=== PATIENT | female | born 1955 | race Caucasian/White ===

== ENCOUNTER 2018-12-17 16:48 | Inpatient (IN) | payer OTHER, SELFPAY ==
[~2018-12-17] VITALS: Ht 154.9 cm; Wt 64.5 kg
[2018-12-17] MEDS ORDERED: methylPREDNISolone INJ 125 MG/2 ML VIAL (J2930) IV ONE (17:00)
[2018-12-17] MEDS: IPRATROPIUM 0.5MG/ALBUTEROL 2.5MG INH SOL UD 3ML (DUONEB)(J7620) NEB PRN ×2 (17:07→18:28)
[2018-12-17 17:11] LABS: HEMATOCRIT 44.6 % (36.0-47.0); HEMOGLOBIN 15.3 g/dl (12.0-15.5); MEAN CORPUSCULAR HEMOGLOBIN 31.2 pg (27.0-33.0); MEAN CORPUSCULAR HGB CONC 34.3 g/dl (32.0-36.5); PLATELET COUNT, AUTOMATED 172 10^3/uL (150-450); WHITE BLOOD COUNT 9.3 10^3/uL (4.0-10.0)
[2018-12-17 17:25] LABS: ABG BASE EXCESS -0.9 (-2.0-2.0); ABG HCO3 21.8 MEQ/L (22.0-26.0); ABG O2 SATURATION 85.8 % (95.0-99.0); ABG PARTIAL PRESSURE CO2 31.4 mmHg (35.0-45.0); ABG STANDARD HCO3 23.4 MEQ/L (22.0-26.0); ABG TOTAL CO2 22.8 MEQ/L (23.0-31.0)
[2018-12-17 17:26] LABS: INR 0.88
--- NOTE | 2018-12-17 17:34 | REP ---
Clinical: Cough and dyspnea. Comparison: None. Findings: Mediastinum and cardiac silhouette are normal. Lung bey demonstrate chronic interstitial changes with superimposed bibasilar atelectasis suggested (left greater than right). No effusion. No pneumothorax. Skeletal structures intact. Impression: Superimposed bibasilar atelectasis (left greater than right). Electronically Signed by Wilmer Mccarthy MD 12/17/2018 05:26 P
[2018-12-17 17:39] LABS: ATYPICAL LYMPH 1 % (0-5); LYMPHOCYTES 17 % (16-52); METAMYELOCYTES 1 % (0-0); MONOCYTES 3 % (0-8); NEUTROPHILS 73 % (35-75); PLATELET ESTIMATE NORMAL (NORMAL)
[2018-12-17 17:40] LABS: ANISOCYTOSIS 1+; INFLUENZA A AMPLIFICATION POSITIVE (NEGATIVE); INFLUENZA B AMPLIFICATION NEGATIVE (NEGATIVE)
[2018-12-17 17:48] LABS: ALBUMIN 2.6 GM/DL (3.2-5.2); BILIRUBIN,DIRECT 0.3 MG/DL (0.0-0.2); BILIRUBIN,TOTAL 0.5 MG/DL (0.2-1.0); CALCIUM LEVEL 8.5 MG/DL (8.8-10.2); CREATININE FOR GFR 1.23 MG/DL (0.55-1.30); GLOMERULAR FILTRATION RATE 47.1 (>45); MB/CK RELATIVE INDEX 0.17 (< OR =4); POTASSIUM SERUM 3.8 MEQ/L (3.5-5.1); THYROID STIMULATING HORMONE 0.504 uIU/ML (0.358-3.740); TOTAL PROTEIN 6.6 GM/DL (6.4-8.2); TROPONIN I 0.02 NG/ML (< 0.10)
[2018-12-17] MEDS ORDERED: OSELTAMIVIR PHOSPHATE 75 MG CAP (TAMIFLU) PO ONE (18:00)
--- NOTE | 2018-12-17 18:17 | ECGEPIP ---
Stationary ECG Study [facility] - ED Test Date: 2018-12-17 Pat Name: GABE OLIVARES Department: Room: - Gender: F Production Maintenance Technician: DOREEN : 1955 Requested By: Karissa Delgado Order Number: [id number] Reading MD: Karissa Delgado Measurements Intervals [place] Rate: 113 P: 70 MS: 144 QRS: 45 QRSD: 79 T: 54 QT: 294 QTc: 404 Interpretive Statements SINUS TACHYCARDIA POSSIBLE RIGHT ATRIAL ENLARGEMENT ABNORMAL RHYTHM ECG NO PRIOR FOR COMPARISON Electronically Signed On 12-17-2018 18:16:53 EDT by Karissa Delgado
[2018-12-17 18:29] LABS: HEMOGLOBIN A1c 6.8 %
[2018-12-17] MEDS ORDERED: IPRATROPIUM 0.5MG/ALBUTEROL 2.5MG INH SOL UD 3ML (DUONEB)(J7620) NEB PRN (18:45)
[2018-12-17] MEDS ORDERED: ACETAMINOPHEN TAB 650MG DOSE (2X325MG) PO PRN (18:45)
[2018-12-17] MEDS: NS 1,000 ML IV SCH (21:10)
[2018-12-17 21:21] VITALS: BP 147/89
[2018-12-17] MEDS ORDERED: ALBUTEROL SULFATE 2.5 MG/0.5 ML INH NEB SOLN NEB PRN (22:30)
[2018-12-17] MEDS: IPRATROPIUM 0.5MG/ALBUTEROL 2.5MG INH SOL UD 3ML (DUONEB)(J7620) NEB SCH (23:01)
[2018-12-18] VITALS (7 sets, daily range): BP systolic 125–165; BP diastolic 62–99; O2SAT 93
[2018-12-18] MEDS: methylPREDNISolone INJ 125 MG/2 ML VIAL (J2930) IV SCH ×3 (01:31→17:37)
[2018-12-18] MEDS: IPRATROPIUM 0.5MG/ALBUTEROL 2.5MG INH SOL UD 3ML (DUONEB)(J7620) NEB SCH ×6 (03:53→20:00)
[2018-12-18] MEDS: NS 1,000 ML IV SCH (04:07)
[2018-12-18] MEDS ORDERED: CEPACOL LOZENGE PO PRN (05:45)
[2018-12-18 06:29] LABS: HEMATOCRIT 40.8 % (36.0-47.0); HEMOGLOBIN 13.9 g/dl (12.0-15.5); MEAN CORPUSCULAR HEMOGLOBIN 30.8 pg (27.0-33.0); MEAN CORPUSCULAR HGB CONC 34.1 g/dl (32.0-36.5); MEAN CORPUSCULAR VOLUME 90.3 fl (80.0-96.0); PLATELET COUNT, AUTOMATED 177 10^3/uL (150-450); RED BLOOD COUNT 4.52 10^6/uL (4.00-5.40); WHITE BLOOD COUNT 9.3 10^3/uL (4.0-10.0)
[2018-12-18 06:55] LABS: ATYPICAL LYMPH 1 % (0-5); LYMPHOCYTES 20 % (16-52); MONOCYTES 7 % (0-8); MYELOCYTES 2 % (0-0); NEUTROPHILS 66 % (35-75); PLATELET ESTIMATE NORMAL (NORMAL)
[2018-12-18 06:56] LABS: ANISOCYTOSIS 1+
[2018-12-18 07:12] LABS: CALCIUM LEVEL 8.3 MG/DL (8.8-10.2); CREATININE FOR GFR 1.05 MG/DL (0.55-1.30); GLOMERULAR FILTRATION RATE 56.5 (>45); POTASSIUM SERUM 3.2 MEQ/L (3.5-5.1)
[2018-12-18] MEDS: HumaLOG INSULIN (NovoLOG) PER UNIT SC SCH ×4 (07:30→21:00)
--- NOTE | 2018-12-18 08:00 | HPE ---
DATE OF ADMISSION: 12/17/2018 63-year-old female with unknown past medical history because she has never seen a primary medical doctor who presents to the emergency room with dry cough and aches and chills for the past four days. She actually claims that the cough has been going on for the past couple of months but has worsened in the past few days and she has increasing shortness of breath. When she came to the ER, she was hypoxic at 83% on room air, was given three nebulizer treatments, 125 mg of IV Solu-Medrol and was placed on 2 liters nasal cannula with marked improvement in her oxygenation, now saturating at 93%. The patient says she does feel better though she was still having a dry cough while I was interviewing her. She has not been exposed to anyone sick that she knows of in the recent past, and again, to mention she has never seen a primary medical doctor so she is on no medications and does not know of any medical problems that she is aware of. She will be admitted for further management. Again, no past medical history, no past surgical history. ALLERGIES: No known drug allergies. FAMILY HISTORY: Noncontributory. SOCIAL HISTORY: Patient is a chronic smoker a pack a day for many years. Denies alcohol or illicit drugs. HOME MEDICATIONS: She takes no medications. REVIEW OF SYSTEMS: Negative in all 10 major systems except what is mentioned in the history of present illness. VITALS: Blood pressure is 141/64, heart rate is 125 and regular, respiratory rate is 20, temperature 99.6, oxygen saturation is 92% on 2 liters nasal cannula. Head is atraumatic, normocephalic. Neck supple, no jugular venous distention (JVD). Lungs have diminished breath sounds bilaterally. S1 and S2 audible, no murmurs appreciated. Abdomen soft. Positive bowel sounds. No pedal edema. Skin is intact. Neurologic exam: Patient awake, alert and oriented times three. LABS: WBC 9.3, hemoglobin 15.3, hematocrit 44.6, platelets 172,000. Sodium 137, potassium 3.8, chloride 101, CO2 25, BUN 31, creatinine 1.23, glucose is 158, lactic acid is 2.2. Hemoglobin A1c 6.8. Creatinine kinase is 1229, TSH is 0.504. The patient is flu A positive. Chest x-ray shows superimposed bibasilar atelectasis, left greater than right. No obvious consolidations. IMPRESSION: 1. Hypoxia. 2. Flu A positive. 3. Rhabdomyolysis. PLAN: Patient is to be admitted to the medical/surgical floor. Will start her on Tamiflu 75 mg by mouth twice a day for seven days. We are going to assume she has chronic obstructive pulmonary disease (COPD) because of her longstanding smoking history. Continue Solu-Medrol at 40 IV every 8 hours and give her DuoNebs every 4 hours as needed. I am not quite sure why she has this mild rhabdomyolysis however, we will start her on IV fluids NS at 125 mL an hour. I will repeat her CK levels in the morning. Will continue following her care on the medical/surgical floor.
[2018-12-18] MEDS ORDERED: POTASSIUM CHLORIDE INJ 20 MEQ in NS 1,000 ML IV SCH (08:03)
[2018-12-18] MEDS ORDERED: GLUCAGON FOR INJ 1 MG VIAL (J1610) SC PRN (08:15)
[2018-12-18] MEDS ORDERED: DEXTROSE 50% 50 ML SYRINGE IV PRN (08:15)
[2018-12-18] MEDS ORDERED: GLUCOSE 4 GM CHEW TABLET PO PRN (08:15)
[2018-12-18] MEDS ORDERED: ISOVUE-370 76% 125ML VIAL (Q9967 PER ML) As Ordered ONE (08:54)
[2018-12-18] MEDS ORDERED: KCL 20MEQ in NS 1000ML 1,000 ML IV SCH (09:00)
[2018-12-18] MEDS ORDERED: POTASSIUM CHLORIDE 10 MEQ SR TABLET PO ONE (09:00)
--- NOTE | 2018-12-18 09:02 | REP ---
Clinical: Right upper quadrant pain. Transaminitis. Technique: Real time gonzalez scale ultrasound examination using curved array transducer. Findings: Liver and visualized pancreas are normal in contour, size, echogenicity without focal hepatic or pancreatic lesion identified. The patient is known to be status post cholecystectomy. No biliary ductal dilatation is appreciated and the common bile duct measures 4.9 mm diameter. The right kidney is normal in reniform shape and appears mildly echogenic suggesting mild age-related renal disease. There is no hydronephrosis and the kidney measures 11.2 x 5.3 x 4.8 cm. No ascites. Impression: 1. Prior cholecystectomy. 2. Possible mild renal disease. Electronically Signed by Wilmer Mccarthy MD 12/18/2018 08:53 A
[2018-12-18 09:10] LABS: C REACTIVE PROTEIN QUANTITATIV 26.3 MG/DL (0.00-0.30); MAGNESIUM LEVEL 2.2 MG/DL (1.8-2.4); MB/CK RELATIVE INDEX 0.48 (< OR =4); TROPONIN I 0.03 NG/ML (< 0.10)
[2018-12-18] MEDS: TIOTROPIUM INHALER/CAPSULE (SPIRIVA) INH SCH (09:21)
[2018-12-18] MEDS: ADVAIR HFA 230/21MCG INHALER INH SCH ×2 (09:21→20:09)
--- NOTE | 2018-12-18 09:27 | REP ---
Clinical: Hypoxia. Technique: Axial contrast enhanced images from the thoracic inlet to the upper abdomen with multiplanar re-formations using pulmonary embolus technique. 100 ml Isovue 370 intravenous contrast material was administered without complication. Findings: No obvious pulmonary embolus is appreciated. Thoracic aorta, heart and pericardium appear relatively normal. Moderate mediastinal and hilar adenopathy noted. The lung bey demonstrate diffuse chronic interstitial changes with scattered primarily bibasilar fibrosis and moderate diffuse bronchiectasis. Small scattered bilateral infiltrates are appreciated along with moderate lower lobe consolidations. No effusion. No pneumothorax. Impression: 1. No evidence for pulmonary embolus. Normal thoracic aorta. 2. Diffuse chronic interstitial changes with moderate bibasilar fibrosis. 3. Small scattered bilateral infiltrates along with moderate lower lobe consolidations suggesting multifocal pneumonia. Correlation and follow up to resolution is recommended. Electronically Signed by Wilmer Mccarthy MD 12/18/2018 09:18 A
[2018-12-18 09:34] LABS: ABG BASE EXCESS -1.9 (-2.0-2.0); ABG O2 SATURATION 94.4 % (95.0-99.0); ABG PARTIAL PRESSURE CO2 39.6 mmHg (35.0-45.0); ABG PARTIAL PRESSURE O2 72.8 mmHg (75.0-100.0); ABG STANDARD HCO3 22.8 MEQ/L (22.0-26.0); ABG TOTAL CO2 24.2 MEQ/L (23.0-31.0); ABG pH (ARTERIAL) 7.381 UNITS (7.350-7.450)
[2018-12-18] MEDS: OSELTAMIVIR PHOSPHATE 30MG CAPSULE PO SCH ×2 (09:35→20:31)
[2018-12-18] MEDS: KCL 20MEQ in NS 1000ML 1,000 ML IV SCH ×2 (10:19→20:31)
[2018-12-18] MEDS: AZITHROMYCIN INJ 500 MG, VIAL MATE ADAPTER 1 EACH in D5W 250 ML IV SCH (11:40)
[2018-12-18] MEDS: CEFTAROLINE FOSAMIL 600 MG in D5W MINI-BAG PLUS 50 ML IV SCH (14:15)
[2018-12-18] MEDS: HEPARIN SOD (PORCINE) 5000 UNITS/ML VIAL SQ SCH ×2 (14:16→22:04)
--- NOTE | 2018-12-18 15:07 | IPN ---
DATE: 12/18/2018 SUBJECTIVE: Patient seen and examined, reported worsening hypoxia, continues to have shortness of breath, admitted yesterday. Continues to have cough productive of yellow phlegm. Denies any chest pain, pressure or discomfort, feeling very weak. Currently on 5-6 liters of oxygen. Patient at baseline is not on oxygen at home. VITAL SIGNS: Temperature 98, pulse 100, respirations 18, blood pressure 146/99, pulse oximetry 91% on 6 liters nasal cannula. LABORATORIES: WBC 9.3, hemoglobin and hematocrit 13/40.8, platelets 177. Chemistries: Sodium 138, potassium 3.2, chloride 105, bicarb 23, BUN 28, creatinine 1.05. PHYSICAL EXAMINATION: GENERAL: Patient mildly dyspneic, obese. HEENT: Normocephalic, atraumatic. NECK: Supple. No jugular venous distention (JVD). PULMONARY: Bilateral rhonchi, mild expiratory wheeze. Decrease in air flow. Mildly tachypnec. CARDIAC: Regular S1 and S2. Mild tachycardia. ABDOMEN: Soft, nontender. Positive bowel sounds. EXTREMITIES: No clubbing, cyanosis, or edema. Point of care bedside ultrasound shows the patient's internal jugular is very much collapsible. Cardiac is hyperdynamic. ASSESSMENT/PLAN: This is a 63-year-old female patient who has not seen a provider for many years, smoker, who presented with cough, shortness of breath, found to be in acute hypoxic respiratory failure. PROBLEMS: 1. Acute hypoxic respiratory failure secondary to influenza A infection with likely acute COPD exacerbation. CT angio negative for pulmonary embolism (PE), likely underlying pneumonia. Will need to rule out Methicillin-resistant Staphylococcus aureus (MRSA) pneumonia. Follow-up blood cultures, sputum culture and MRSA screening. Started on azithromycin and Teflaro. Follow-up C-reactive protein. Follow-up lactic acid. IV fluids have been ordered. No ultrasound evidence of fluid overload based on the point of care ultrasound. Continue IV fluids as ordered. Oxygen supplementation if needed. Will monitor closely. Repeat x-ray tomorrow. CT and ABG appreciated. 2. Rhabdomyolysis. Likely secondary to work of breathing. IV fluids. Follow CKs. 3. Lactic acidosis. Resolved with IV fluids. Likely secondary to work of breathing. 4. Acute COPD exacerbation. The patient does not have a formal diagnosis of COPD, but given significant smoking history and patient's presentation, likely the patient does have COPD and will need outpatient follow-up with body painter. Solu-Medrol, Advair, Spiriva, nebulizer treatment. Antibiotics as mentioned above. Continue treatment with Tamiflu for influenza. 5. Diabetes. A1c of 6.8, likely will become hyperglycemic given the patient is on steroids. Insulin as ordered. Will need metformin as an outpatient likely. 6. Obesity, complicating care. 7. Poor compliance. Patient will need to be set up with primary care provider as an outpatient. 8. Smoking. Smoking cessation counseling provided. 9. Deep vein thrombosis (DVT) prophylaxis. Heparin subcu. DISPOSITION: Pending clinical improvement. Patient has been transferred to PCU for higher level of care given worsening respirations and higher oxygen requirement.
[2018-12-18 16:44] LABS: MB/CK RELATIVE INDEX 0.59 (< OR =4); TROPONIN I 0.03 NG/ML (< 0.10)
[2018-12-19] MEDS: IPRATROPIUM 0.5MG/ALBUTEROL 2.5MG INH SOL UD 3ML (DUONEB)(J7620) NEB SCH ×6 (00:25→19:46)
[2018-12-19] MEDS: CEFTAROLINE FOSAMIL 600 MG in D5W MINI-BAG PLUS 50 ML IV SCH ×2 (00:52→12:08)
[2018-12-19] MEDS: methylPREDNISolone INJ 40 MG/1 ML VIAL (J2920) IV SCH ×3 (02:40→17:37)
[2018-12-19 04:00] VITALS: BP 137/73
[2018-12-19 05:45] LABS: HEMATOCRIT 37.3 % (36.0-47.0); HEMOGLOBIN 12.3 g/dl (12.0-15.5); MEAN CORPUSCULAR HEMOGLOBIN 30.4 pg (27.0-33.0); MEAN CORPUSCULAR VOLUME 92.3 fl (80.0-96.0); PLATELET COUNT, AUTOMATED 211 10^3/uL (150-450); RED BLOOD COUNT 4.04 10^6/uL (4.00-5.40); WHITE BLOOD COUNT 12.2 10^3/uL (4.0-10.0)
[2018-12-19 06:09] LABS: BILIRUBIN,TOTAL 0.4 MG/DL (0.2-1.0); C REACTIVE PROTEIN QUANTITATIV 16.7 MG/DL (0.00-0.30); CALCIUM LEVEL 8.2 MG/DL (8.8-10.2); GLOMERULAR FILTRATION RATE 59.8 (>45); POTASSIUM SERUM 4.2 MEQ/L (3.5-5.1)
[2018-12-19 06:10] LABS: ALBUMIN 1.8 GM/DL (3.2-5.2)
[2018-12-19] MEDS: HEPARIN SOD (PORCINE) 5000 UNITS/ML VIAL SQ SCH ×3 (06:41→20:18)
--- NOTE | 2018-12-19 06:51 | ECHO ---
DATE OF PROCEDURE: 12/18/2018 DATE OF : 1955 AGE: 63 REFERRING PROVIDER: Dr. Goetz. PATIENT LOCATION: Room 3219. REASON FOR ECHOCARDIOGRAM: Shortness of breath. 2D MEASUREMENTS: IVS: 0.8 cm LV: 3.8 cm LVPW: 0.9 cm LA: 2.9 cm Aorta: 3.2 cm IVC: 1.4 cm DOPPLER MEASUREMENTS: Peak velocity across the aortic valve: 1.8 m/s Peak velocity across the LVOT: 1.6 m/s Peak gradient across the aortic valve: 13 mmHg Mean gradient across the aortic valve: 7 mmHg Mitral E: 0.84, Mitral A 1.1 with a ratio of 0.8. 2D COMMENTS: 1. Normal left ventricular size, wall thickness and normal global left ventricular systolic function. The left ventricle appeared to be mildly hyperkinetic. The estimated global left ventricular systolic ejection fraction is 65% to 70%. 2. Normal left atrium. Normal right atrium and ventricle. 3. The atrial septum appeared to be normal without evidence of defect or shunt. 4. Normal aortic root. 5. Trace pericardial effusion noted posteriorly at the base of the left ventricle, no evidence of cardiac tamponade. 6. Mildly calcified aortic valve, leaflet excursion appeared to be normal. Mildly calcified mitral annulus with normal anterior mitral valve leaflet motion. Normal tricuspid valve and pulmonic valve. 7. The inferior vena cava was normal in size, central venous pressure is most likely normal. DOPPLER: It detects trace mitral regurgitation. Abnormal relaxation pattern was noted across the mitral valve leaflets consistent with features of grade I left ventricular diastolic dysfunction. IMPRESSION: 1. Normal global left ventricular systolic function. There are some features of left ventricular diastolic dysfunction manifested by abnormal relaxation. 2. Aortic valve sclerosis with trivial aortic stenosis. No evidence of aortic regurgitation detected. 3. Mitral annulus calcification with trace mitral regurgitation. 4. Trace pericardial effusion noted during the test, no evidence of cardiac tamponade. This was noted mainly at the base of the left ventricle. 5. Patient during echocardiogram was mildly tachycardic at times. MTDD
[2018-12-19] MEDS: TIOTROPIUM INHALER/CAPSULE (SPIRIVA) INH SCH (07:18)
[2018-12-19] MEDS: ADVAIR HFA 230/21MCG INHALER INH SCH ×2 (07:18→19:45)
[2018-12-19 08:00] VITALS: BP 119/65
[2018-12-19] MEDS ORDERED: LR 1,000 ML IV SCH (08:00)
[2018-12-19] MEDS: HumaLOG INSULIN (NovoLOG) PER UNIT SC SCH ×4 (08:07→20:19)
[2018-12-19] MEDS: OSELTAMIVIR PHOSPHATE 30MG CAPSULE PO SCH ×2 (08:07→20:18)
[2018-12-19] MEDS: AZITHROMYCIN INJ 500 MG, VIAL MATE ADAPTER 1 EACH in D5W 250 ML IV SCH (10:07)
[2018-12-19 12:00] VITALS: BP 123/65
[2018-12-19 16:00] VITALS: BP 128/66
--- NOTE | 2018-12-19 16:14 | IPNPDOC ---
Date Seen The patient was seen on 12/19/18. Progress Note SUBJECTIVE: Patient is a 83-year-old female who has not seen a provider for many years history of tobacco abuse who was admitted for acute hypoxic respiratory failure secondary to influenza a infection and multifocal pneumonia. Patient is seen and examined this morning continues to have some shortness of breath but no worsening hypoxia. She denies any chest pain. She is tolerating meals has had bowel movements and is trying to keep herself hydrated. She has minimal urine output in the last 24 hours though. Was started on IV steroids 40 mg every 8 hours yesterday. MRSA screen returned negative OBJECTIVE PHYSICAL EXAMINATION: VITAL SIGNS: Please see below. GENERAL: Soft-spoken 63-year-old female who does not appear in acute distress laying down comfortably on the bed not fully participating in exam today HEENT: Atraumatic normocephalic pupils round and reactive no JVD no lymphadenopa thy noted CARDIOVASCULAR: Normal S1-S2 sounds slightly tachycardic, no audible murmurs RESPIRATORY: Diffuse rhonchi with mild expiratory wheeze decreased inspiratory expansion, reduced breath sounds in the left lower lobe and positive for egophony left lower lobe. ABDOMINAL: Obese abdomen soft nontender with positive bowel sounds EXTREMITIES: No lower extremity edema no calf tenderness LABORATORY DATA, IMAGING STUDIES, MICROBIOLOGY: Please see below. Echocardiogram: 12/18/2018- Dr. Cotter 1. Normal global left ventricular systolic function. There are some features of left ventricular diastolic dysfunction manifested by abnormal relaxation. 2. Aortic valve sclerosis with trivial aortic stenosis. No evidence of aortic regurgitation detected. 3. Mitral annulus calcification with trace mitral regurgitation. 4. Trace pericardial effusion noted during the test, no evidence of cardiac t amponade. This was noted mainly at the base of the left ventricle. 5. Patient during echocardiogram was mildly tachycardic at times. DVT prophylaxis ordered?: Yes heparin subcutaneous twice a day ASSESSMENT AND PLAN: This is a 63-year-old female patient who has not seen a provider for many years, smoker, who presented with cough, shortness of breath, found to be in acute hypoxic respiratory failure. PROBLEMS: Acute hypoxic respiratory failure secondary to influenza A infection and likely multifocal pneumonia - CT angio negative for PE, possible multifocal pneumonia -Blood cultures 2 negative -Gastrointestinal panel and MRSA screen negative -Procalcitonin elevated: 41.04 -Trend CRP, consider repeat pro calcitonin in 24-48 hours to see a response to antibiotic therapy -De-escalated Teflaro to Rocephin and continue with azithromycin for 5-7 days of antibiotics therapy -Sputum culture pending -C/w with Tamiflu for 5 days (12/23/18) -Continue with steroid taper -C/W DuoNeb's, Proventil nebulizer and oxygen Rhabdomyolysis Likely secondary to work of breathing -Continue with lactated Ringer's 100 mL 1 L -Trend CKs Lactic acidosis. -Resolved with IV fluids. -Likely secondary to work of breathing. Acute COPD exacerbation -does not have a formal diagnosis of COPD -significant smoking history and patient's presentation, likely the patient does have COPD and will need outpatient follow-up with education and training manager. -c/w Solu-Medrol taer, Advair, Spiriva, nebulizer treatment. Diabetes. -A1c of 6.8, -Hyperglycemia likely secondary to steroids -c/w Insulin -Upon discharge consider metformin Obesity -complicating care. Poor compliance. -establish with primary care provider as an outpatient. Smoking -cessation counseling provided. DVT prophylaxis -Heparin subcu. VS, I&O, 24H, Fishbone Vital Signs/I&O Vital Signs Date Time Temp Pulse Resp B/P (MAP) Pulse Ox O2 Delivery O2 Flow Rate FiO2 12/19/18 12:00 97.6 100 16 123/65 (84) 95 6.0 12/19/18 11:23 Nasal Cannula I&O- Last 24 Hours up to 6 AM 12/19/18 06:00 Intake Total 590 ml Output Total 200 ml Balance 390 ml Laboratory Data 24H LABS Laboratory Tests 2 12/18/18 15:49: Total Creatine Kinase 1135H, Creatine Kinase MB 7.0H, Creatine Kinase MB Relative Index 0.59, Troponin I 0.03 12/18/18 17:27: Bedside Glucose (Misc Panel) 238H 12/18/18 20:50: Bedside Glucose (Misc Panel) 235H 12/19/18 05:16: Nucleated Red Blood Cells % (auto) 0.3H, Anion Gap 7L, Glomerular Filtration Rate 59.8, Blood Urea Nitrogen 24H, Creatinine 1.00, Sodium Level 141, Potassium Level 4.2#, Chloride Level 112H, Carbon Dioxide Level 22, Calcium Level 8.2L, Aspartate Amino Transf (AST/SGOT) 77H, Alanine Aminotransferase (ALT/SGPT) 50, Alkaline Phosphatase 117, Total Bilirubin 0.4, Total Protein 6.0L, Albumin 1.8#L, Magnesium Level 2.0, C-Reactive Protein, Quantitative 16.70H, Albumin/Globulin Ratio 0.43L 12/19/18 11:42: Bedside Glucose (Misc Panel) 261H CBC/BMP Laboratory Tests 12/19/18 05:16 Red Blood Count 4.04, Mean Corpuscular Volume 92.3, Mean Corpuscular Hemoglobin 30.4, Mean Corpuscular Hemoglobin Concent 33.0, Red Cell Distribution Width 16.1 H, Calcium Level 8.2 L, Aspartate Amino Transf (AST/SGOT) 77 H, Alanine Aminotransferase (ALT/SGPT) 50, Alkaline Phosphatase 117, Total Bilirubin 0.4, Total Protein 6.0 L, Albumin 1.8 #L Microbiology Microbiology 12/17/18 Blood Culture - Preliminary, Resulted 12/17/18 Blood Culture - Preliminary, Resulted 12/18/18 Gastrointestinal Tract Panel (PCR) - Final, Complete 12/18/18 MRSA Screen - Final, Complete GME ATTESTATION GME ATTESTATION My faculty preceptor for this patient encounter was physically present during th e encounter and was fully available. All aspects of the patient interview, examination, medical decision making process, and medical care plan development were reviewed and approved by the faculty preceptor. The faculty preceptor is aware and concurs with the plan as stated in the body of this note and will attest to such by his/her cosignature. ATTENDING NOTE I have both independently examined this patient as well as reviewed the note. I have discussed in detail with the resident the findings and plan of treatment as documented in the residents note. TRENTON Harding MD, DO Dec 19, 2018 15:51 IVORY PEDROZA MD Dec 20, 2018 17:52
[2018-12-19 20:00] VITALS: BP 127/60
[2018-12-19 23:59] VITALS: BP 131/59
[2018-12-20] MEDS: cefTRIAXone SOD 1 GM in D5W MINI-BAG PLUS 50 ML IV SCH (00:16)
[2018-12-20 04:00] VITALS: BP 117/60
[2018-12-20] MEDS: IPRATROPIUM 0.5MG/ALBUTEROL 2.5MG INH SOL UD 3ML (DUONEB)(J7620) NEB SCH ×7 (04:00→23:11)
[2018-12-20] MEDS: HEPARIN SOD (PORCINE) 5000 UNITS/ML VIAL SQ SCH ×3 (05:02→21:03)
[2018-12-20 05:56] LABS: HEMATOCRIT 37.4 % (36.0-47.0); HEMOGLOBIN 12.2 g/dl (12.0-15.5); MEAN CORPUSCULAR HEMOGLOBIN 30.7 pg (27.0-33.0); MEAN CORPUSCULAR HGB CONC 32.6 g/dl (32.0-36.5); PLATELET COUNT, AUTOMATED 231 10^3/uL (150-450); RED BLOOD COUNT 3.98 10^6/uL (4.00-5.40); WHITE BLOOD COUNT 13.6 10^3/uL (4.0-10.0)
[2018-12-20 06:27] LABS: ALBUMIN 1.9 GM/DL (3.2-5.2); BILIRUBIN,TOTAL 0.3 MG/DL (0.2-1.0); C REACTIVE PROTEIN QUANTITATIV 7.5 MG/DL (0.00-0.30); CALCIUM LEVEL 8.9 MG/DL (8.8-10.2); CREATININE FOR GFR 1.08 MG/DL (0.55-1.30); GLOMERULAR FILTRATION RATE 54.7 (>45); MAGNESIUM LEVEL 2.2 MG/DL (1.8-2.4); POTASSIUM SERUM 4.5 MEQ/L (3.5-5.1); TOTAL PROTEIN 6.2 GM/DL (6.4-8.2)
[2018-12-20] MEDS: OSELTAMIVIR PHOSPHATE 30MG CAPSULE PO SCH ×2 (07:54→21:02)
[2018-12-20] MEDS: HumaLOG INSULIN (NovoLOG) PER UNIT SC SCH ×4 (07:56→21:00)
[2018-12-20 08:00] VITALS: BP 127/60
[2018-12-20] MEDS: ADVAIR HFA 230/21MCG INHALER INH SCH ×2 (08:35→19:38)
[2018-12-20] MEDS: TIOTROPIUM INHALER/CAPSULE (SPIRIVA) INH SCH (08:35)
[2018-12-20] MEDS ORDERED: predniSONE 20 MG TAB PO SCH (09:00)
[2018-12-20] MEDS: AZITHROMYCIN INJ 500 MG, VIAL MATE ADAPTER 1 EACH in D5W 250 ML IV SCH (11:12)
[2018-12-20 12:00] VITALS: BP 127/72
[2018-12-20] MEDS: methylPREDNISolone INJ 125 MG/2 ML VIAL (J2930) IV SCH (15:26)
[2018-12-20 16:00] VITALS: BP 135/72
--- NOTE | 2018-12-20 16:59 | IPNPDOC ---
Date Seen The patient was seen on 12/20/18. Progress Note SUBJECTIVE: Ms. Calero is a 63 yo female who was admitted for acute hypoxic respiratory failure secondary to influenza and multifocal pneumonia. Patient was seen this morning resting in bed. She says that she has not had any improvement in her symptoms. She reports SOB, non productive cough, and fatigue. Overnight nursing reported asymptomatic bradycardia with her HR into the 40s which corrected when woken up. No other overnight events reported OBJECTIVE PHYSICAL EXAMINATION: VITAL SIGNS: Please see below. GENERAL: alert, cooperative, A&OX3 HEENT: PERRLA, EOMI, supply, no JVD CARDIOVASCULAR: regular rate, normal s1 and s2. no murmurs, rubs, or gallops RESPIRATORY: Diffuse diminished breath sounds bilaterally. Mild expiratory wheezes at the lung bases. Dullness to percussion in the left lower lung base (improving) ABDOMINAL: obese, non distended, non tender to palpation EXTREMITIES: no peripheral edema, no rashes LABORATORY DATA, IMAGING STUDIES, MICROBIOLOGY: Please see below. DVT prophylaxis ordered?: subcutaneous heparin BID ASSESSMENT AND PLAN: Ms. Calero is a 63 yo female who was admitted for acute hypoxic respiratory failure secondary to influenza and multifocal pneumonia. The following problems will be addressed during her hospitalization. PROBLEMS: Acute hypoxic respiratory failure secondary to influenza A infection and likely multifocal pneumonia - Patient complains of SOB, non productive cough, and fatigue. She has no home O2 requirement -CT possible multifocal pneumonia, Blood cultures 2 negative, Gastrointestinal panel and MRSA screen negative -CRP is trending down, continue to monitor -De-escalated Teflaro to Rocephin and continue with azithromycin for 5-7 days of antibiotics therapy -c/w IV methylprednisolone 40 mg q8h, can considering taper after clinical improvement -C/w with Tamiflu for 5 days (12/23/18) -C/W DuoNeb's, Proventil nebulizer and begin to wean oxygen to maintain O2 >90% -Chest PT ordered Rhabdomyolysis Likely secondary to work of breathing -CK continues to trend down, will monitor Lactic acidosis. -Resolved with IV fluids. -Likely secondary to work of breathing. Acute COPD exacerbation -does not have a formal diagnosis of COPD -significant smoking history and patient's presentation, likely the patient does have COPD and will need outpatient follow-up with base filler. -c/w Solu-Medrol taper, Advair, Spiriva, nebulizer treatment. Diabetes. -A1c of 6.8 -Hyperglycemia likely secondary to steroids -c/w ISS -Upon discharge consider metformin Obesity -complicating care. Poor compliance. -establish with primary care provider as an outpatient. Smoking -cessation counseling provided PT/OT -consulted, appreciate their recommendation DVT prophylaxis -Heparin subcu. DISPOSITION: pending clinical improvement VS, I&O, 24H, Fishbone Vital Signs/I&O Vital Signs Date Time Temp Pulse Resp B/P (MAP) Pulse Ox O2 Delivery O2 Flow Rate FiO2 12/20/18 12:00 4.0 12/20/18 12:00 97.3 80 17 127/72 (90) 94 12/19/18 11:23 Nasal Cannula I&O- Last 24 Hours up to 6 AM 12/20/18 06:00 Intake Total 2330 ml Output Total 500 ml Balance 1830 ml Laboratory Data 24H LABS Laboratory Tests 2 12/19/18 17:27: Bedside Glucose (Misc Panel) 295H 12/19/18 20:15: Bedside Glucose (Misc Panel) 270H 12/20/18 05:01: Nucleated Red Blood Cells % (auto) 0.3H, Anion Gap 6L, Glomerular Filtration Rate 54.7, Blood Urea Nitrogen 29H, Creatinine 1.08, Sodium Level 144, Potassium Level 4.5, Chloride Level 112H, Carbon Dioxide Level 26, Calcium Level 8.9, Aspartate Amino Transf (AST/SGOT) 68H, Alanine Aminotransferase (ALT/SGPT) 54, Total Creatine Kinase 426H, Alkaline Phosphatase 118H, Total Bilirubin 0.3, Total Protein 6.2L, Albumin 1.9L, Magnesium Level 2.2, C-Reactive Protein, Quantitative 7.50H, Albumin/Globulin Ratio 0.44L 12/20/18 11:51: Bedside Glucose (Misc Panel) 214H CBC/BMP Laboratory Tests 12/20/18 05:01 Red Blood Count 3.98 L, Mean Corpuscular Volume 94.0, Mean Corpuscular Hemoglobin 30.7, Mean Corpuscular Hemoglobin Concent 32.6, Red Cell Distribution Width 16.4 H, Calcium Level 8.9, Aspartate Amino Transf (AST/SGOT) 68 H, Alanine Aminotransferase (ALT/SGPT) 54, Total Creatine Kinase 426 H, Alkaline Phosphatase 118 H, Total Bilirubin 0.3, Total Protein 6.2 L, Albumin 1.9 L Microbiology Microbiology 12/20/18 Blood Culture, Received Pending 12/17/18 Blood Culture - Final, Complete Staphylococcus Hominis Ssp Jaya 12/17/18 Blood Culture - Final, Complete Staphylococcus Hominis Ssp Jaya 12/18/18 Gastrointestinal Tract Panel (PCR) - Final, Complete 12/18/18 MRSA Screen - Final, Complete GME ATTESTATION GME ATTESTATION My faculty preceptor for this patient encounter was physically present during the encounter and was fully available. All aspects of the patient interview, examination, medical decision making process, and medical care plan development were reviewed and approved by the faculty preceptor. The faculty preceptor is aware and concurs with the plan as stated in the body of this note and will attest to such by his/her cosignature. MELANIE PARIKH OMS-III Dec 20, 2018 16:59
[2018-12-20 20:00] VITALS: BP 136/75
[2018-12-21] MEDS: cefTRIAXone SOD 1 GM in D5W MINI-BAG PLUS 50 ML IV SCH ×2 (00:31→23:59)
[2018-12-21] MEDS: methylPREDNISolone INJ 125 MG/2 ML VIAL (J2930) IV SCH ×4 (00:31→23:59)
[2018-12-21 04:00] VITALS: BP 142/73
[2018-12-21] MEDS: IPRATROPIUM 0.5MG/ALBUTEROL 2.5MG INH SOL UD 3ML (DUONEB)(J7620) NEB SCH ×6 (04:00→23:24)
[2018-12-21 05:18] LABS: HEMATOCRIT 36.2 % (36.0-47.0); HEMOGLOBIN 12.1 g/dl (12.0-15.5); MEAN CORPUSCULAR HEMOGLOBIN 30.7 pg (27.0-33.0); MEAN CORPUSCULAR HGB CONC 33.4 g/dl (32.0-36.5); MEAN CORPUSCULAR VOLUME 91.9 fl (80.0-96.0); PLATELET COUNT, AUTOMATED 250 10^3/uL (150-450); RED BLOOD COUNT 3.94 10^6/uL (4.00-5.40); WHITE BLOOD COUNT 9.6 10^3/uL (4.0-10.0)
[2018-12-21 05:37] LABS: ALBUMIN 2.1 GM/DL (3.2-5.2); BILIRUBIN,TOTAL 0.4 MG/DL (0.2-1.0); C REACTIVE PROTEIN QUANTITATIV 3.42 MG/DL (0.00-0.30); CALCIUM LEVEL 8.6 MG/DL (8.8-10.2); CREATININE FOR GFR 1.09 MG/DL (0.55-1.30); GLOMERULAR FILTRATION RATE 54.1 (>45); POTASSIUM SERUM 4.4 MEQ/L (3.5-5.1); TOTAL PROTEIN 6.2 GM/DL (6.4-8.2)
[2018-12-21] MEDS: HEPARIN SOD (PORCINE) 5000 UNITS/ML VIAL SQ SCH ×3 (06:19→22:06)
[2018-12-21] MEDS: TIOTROPIUM INHALER/CAPSULE (SPIRIVA) INH SCH (07:27)
[2018-12-21] MEDS: ADVAIR HFA 230/21MCG INHALER INH SCH ×2 (07:27→19:38)
[2018-12-21 07:45] VITALS: BP 170/81
[2018-12-21] MEDS: OSELTAMIVIR PHOSPHATE 30MG CAPSULE PO SCH ×2 (09:31→22:06)
[2018-12-21] MEDS: HumaLOG INSULIN (NovoLOG) PER UNIT SC SCH ×4 (09:31→21:00)
[2018-12-21] MEDS: AZITHROMYCIN INJ 500 MG, VIAL MATE ADAPTER 1 EACH in D5W 250 ML IV SCH (11:37)
[2018-12-21 12:00] VITALS: BP 167/81
[2018-12-21 12:09] VITALS: O2SAT 90
[2018-12-21] MEDS ORDERED: SLF 3 ML SYR IV PRN (12:30)
[2018-12-21] MEDS: SLF 3 ML SYR IV SCH ×2 (14:16→22:00)
[2018-12-21 16:00] VITALS: BP 148/74
--- NOTE | 2018-12-21 16:57 | IPNPDOC ---
Date Seen The patient was seen on 12/21/18. Progress Note SUBJECTIVE: Ms. Calero is a 63 yo female who was admitted for acute hypoxic respiratory failure secondary to influenza and multifocal pneumonia. She was seen this morning while sitting up in bed. She says that she is feeling better today. She still has some SOB but her cough is improving, she used chest PT yesterday which she complained was loud. Nursing reported no overnight events. OBJECTIVE PHYSICAL EXAMINATION: VITAL SIGNS: Please see below. GENERAL: Patient appears more comfortable and is on RA. She is alert, cooperative, A&OX3. HEENT: PERRLA, EOMI, supple CARDIOVASCULAR: Regular rate, normal S1 and S2. No murmurs, rubs, gallops. RESPIRATORY: Diminished breath sounds throughout. Few scattered rhonchi. Mild wheezing at lung bases. No egophony. (improving) ABDOMINAL: obese, soft LABORATORY DATA, IMAGING STUDIES, MICROBIOLOGY: Please see below. ECHOCARDIOGRAM: IMPRESSION: 1. Normal global left ventricular systolic function. There are some features of left ventricular diastolic dysfunction manifested by abnormal relaxation. 2. Aortic valve sclerosis with trivial aortic stenosis. No evidence of aortic regurgitation detected. 3. Mitral annulus calcification with trace mitral regurgitation. 4. Trace pericardial effusion noted during the test, no evidence of cardiac tamponade. This was noted mainly at the base of the left ventricle. 5. Patient during echocardiogram was mildly tachycardic at times. DVT prophylaxis ordered?: subcutaneous heparin BID ASSESSMENT AND PLAN: Ms. Calero is a 63 yo female who was admitted for acute hypoxic respiratory failure secondary to influenza and multifocal pneumonia. The following problems will be addressed during her hospitalization. PROBLEMS: Acute hypoxic respiratory failure secondary to influenza A infection and likely multifocal pneumonia(improving) -Patient appears to be clinically improving. Still reports some SOB and improvement in cough. Currently has O2 sats >90% on RA -CT possible multifocal pneumonia -CRP is continuing to trend down, repeat procalcitonin -c/w azithromycin (day 4) and ceftriaxone (day 2). -c/w IV methylprednisolone 40 mg q8h, can considering taper in 24-48 hours pending further clinical improvement -C/w with Tamiflu for 5 days (12/23/18) -C/w DuoNeb's, Proventil nebulizer and chest PT Staph Bacteremia -Blood cultures 12/18/18 x2 positive for staphylococcus hominis -repeat culture 12/20/18 preliminary has no growth. -She is afebrile, normotensive, normal HR. -Patient is currently on ceftriaxone (day 2) -Echo 12/18/18 showed no valve vegetations -no obivious skin breakdown as source, will need to do through exam tomorrow -Will consult ID, appreciate their recommendations Newly Diagnosed Diabetic -Blood sugar readings have trended upwards since admission likely due to IV steroids. -A1c is 6.8 -worsening Hyperglycemia likely secondary to steroids -c/w ISS and supplment with 10 units levemir at night -Upon discharge consider metformin Acute COPD exacerbation(resolved) -does not have a formal diagnosis of COPD -significant smoking history and patient's presentation, likely the patient does have COPD and will need outpatient follow-up with emergency medicine physician assistant. -c/w Solu-Medrol taper, Advair, Spiriva, nebulizer treatment. Rhabdomyolysis Likely secondary to work of breathing (improving) -CK down trending -can consider repeat levels in 24-48 hours Lactic acidosis (resolved) -s/p IV fluids. Obesity -complicating care. Poor compliance. -establish with primary care provider as an outpatient. Smoking -cessation counseling provided PT/OT -consulted, appreciate their recommendation DVT prophylaxis -Heparin subcu. DISPOSITION: ID consult. Glycemic control. Pending clinical improvement VS, I&O, 24H, Fishbone Vital Signs/I&O Vital Signs Date Time Temp Pulse Resp B/P (MAP) Pulse Ox O2 Delivery O2 Flow Rate FiO2 12/21/18 12:09 90 Room Air 12/21/18 12:00 98.6 79 18 167/81 (109) 12/21/18 06:19 3.0 I&O- Last 24 Hours up to 6 AM 12/21/18 06:00 Intake Total 615 ml Output Total 0 ml Balance 615 ml Laboratory Data 24H LABS Laboratory Tests 2 12/20/18 17:19: Bedside Glucose (Misc Panel) 238H 12/20/18 21:01: Bedside Glucose (Misc Panel) 225H 12/21/18 04:50: Nucleated Red Blood Cells % (auto) 0.0, Anion Gap 6L, Glomerular Filtration Rate 54.1, Blood Urea Nitrogen 30H, Creatinine 1.09, Sodium Level 141, Potassium Level 4.4, Chloride Level 110H, Carbon Dioxide Level 25, Calcium Level 8.6L, Aspartate Amino Transf (AST/SGOT) 58H, Alanine Aminotransferase (ALT/SGPT) 56, Alkaline Phosphatase 118H, Total Bilirubin 0.4, Total Protein 6.2L, Albumin 2.1L, Magnesium Level 2.0, C-Reactive Protein, Quantitative 3.42H, Albumin/Globulin Ratio 0.51L 12/21/18 09:20: Bedside Glucose (Misc Panel) 351H 12/21/18 11:42: Bedside Glucose (Misc Panel) 289H CBC/BMP Laboratory Tests 12/21/18 04:50 Red Blood Count 3.94 L, Mean Corpuscular Volume 91.9, Mean Corpuscular Hemoglobin 30.7, Mean Corpuscular Hemoglobin Concent 33.4, Red Cell Distribution Width 16.1 H, Calcium Level 8.6 L, Aspartate Amino Transf (AST/SGOT) 58 H, Alanine Aminotransferase (ALT/SGPT) 56, Alkaline Phosphatase 118 H, Total Bilirubin 0.4, Total Protein 6.2 L, Albumin 2.1 L Microbiology Microbiology 12/20/18 Blood Culture - Preliminary, Resulted No growth after 24 hours . All specim... 12/17/18 Blood Culture - Final, Complete Staphylococcus Hominis Ssp Jaya 12/17/18 Blood Culture - Final, Complete Staphylococcus Hominis Ssp Jaya 12/18/18 Gastrointestinal Tract Panel (PCR) - Final, Complete 12/18/18 MRSA Screen - Final, Complete GME ATTESTATION GME ATTESTATION My faculty preceptor for this patient encounter was physically present during th e encounter and was fully available. All aspects of the patient interview, examination, medical decision making process, and medical care plan development were reviewed and approved by the faculty preceptor. The faculty preceptor is aware and concurs with the plan as stated in the body of this note and will attest to such by his/her cosignature. MELANIE PARIKH OMS-III Dec 21, 2018 15:04
[2018-12-21 20:00] VITALS: BP 137/67
[2018-12-21] MEDS: LEVEMIR (INSULIN DETEMIR) 1 UNITS/0.01ML SC SCH (22:09)
[2018-12-22] VITALS: BP 130/65
[2018-12-22 04:00] VITALS: BP 160/84
[2018-12-22] MEDS: IPRATROPIUM 0.5MG/ALBUTEROL 2.5MG INH SOL UD 3ML (DUONEB)(J7620) NEB SCH ×6 (04:20→23:56)
[2018-12-22 05:45] LABS: HEMATOCRIT 35.9 % (36.0-47.0); HEMOGLOBIN 12.1 g/dl (12.0-15.5); MEAN CORPUSCULAR HEMOGLOBIN 30.8 pg (27.0-33.0); MEAN CORPUSCULAR HGB CONC 33.7 g/dl (32.0-36.5); MEAN CORPUSCULAR VOLUME 91.3 fl (80.0-96.0); PLATELET COUNT, AUTOMATED 236 10^3/uL (150-450); RED BLOOD COUNT 3.93 10^6/uL (4.00-5.40); WHITE BLOOD COUNT 8.6 10^3/uL (4.0-10.0)
[2018-12-22] MEDS: SLF 3 ML SYR IV SCH ×3 (06:00→20:52)
[2018-12-22] MEDS: HEPARIN SOD (PORCINE) 5000 UNITS/ML VIAL SQ SCH ×3 (06:00→20:52)
[2018-12-22 06:03] LABS: ALBUMIN 2.2 GM/DL (3.2-5.2); ALT/SGPT 60 U/L (12-78); BILIRUBIN,TOTAL 0.6 MG/DL (0.2-1.0); BLOOD UREA NITROGEN 26 MG/DL (7-18); C REACTIVE PROTEIN QUANTITATIV 1.86 MG/DL (0.00-0.30); CALCIUM LEVEL 8.3 MG/DL (8.8-10.2); CARBON DIOXIDE LEVEL 28 MEQ/L (21-32); CHLORIDE LEVEL 108 MEQ/L (98-107); CREATININE FOR GFR 0.91 MG/DL (0.55-1.30); GLOMERULAR FILTRATION RATE > 60.0 (>45); GLUCOSE, FASTING 240 MG/DL (70-100); MAGNESIUM LEVEL 1.9 MG/DL (1.8-2.4); POTASSIUM SERUM 3.7 MEQ/L (3.5-5.1); SODIUM LEVEL 143 MEQ/L (136-145); TOTAL PROTEIN 6.3 GM/DL (6.4-8.2)
[2018-12-22] MEDS: TIOTROPIUM INHALER/CAPSULE (SPIRIVA) INH SCH (07:17)
[2018-12-22] MEDS: ADVAIR HFA 230/21MCG INHALER INH SCH ×2 (07:17→19:46)
[2018-12-22 08:00] VITALS: BP 143/78
[2018-12-22] MEDS: HumaLOG INSULIN (NovoLOG) PER UNIT SC SCH ×4 (09:14→20:52)
[2018-12-22] MEDS: OSELTAMIVIR PHOSPHATE 30MG CAPSULE PO SCH ×2 (09:14→20:51)
[2018-12-22] MEDS: methylPREDNISolone INJ 125 MG/2 ML VIAL (J2930) IV SCH ×2 (09:14→16:06)
[2018-12-22] MEDS: AZITHROMYCIN INJ 500 MG, VIAL MATE ADAPTER 1 EACH in D5W 250 ML IV SCH (11:37)
[2018-12-22 12:00] VITALS: BP 127/69
[2018-12-22 16:00] VITALS: BP 123/78
--- NOTE | 2018-12-22 16:33 | IPNPDOC ---
Date Seen The patient was seen on 12/22/18. Progress Note SUBJECTIVE: Patient is a 63 yo female who was admitted for acute hypoxic respiratory failure secondary to influenza and multifocal pneumonia. She was seen this morning sitting on the edge of the bed on room air. She said that she is feeling better today. SOB and cough have improved. Nursing reported no overnight events. PT continues to see improvement with ambulation, Stating appropriately on RA. OBJECTIVE PHYSICAL EXAMINATION: VITAL SIGNS: Please see below. GENERAL: Alert, cooperative, A&OX3. She is on RA, talking in full sentences, no hoarseness in voice HEENT: EOMI, PERRLA, supple CARDIOVASCULAR: RRR, normal S1 and S2. no murmurs, rubs, or gallops RESPIRATORY: Diffuse diminished breath sounds. Minimal wheezing at lung base. No dullness to percussion, no egophony appreciated. (Improved) ABDOMINAL: obese, soft, non tender, positive breath sounds EXTREMITIES: no skin breakdown, no rashes LABORATORY DATA, IMAGING STUDIES, MICROBIOLOGY: Please see below. DVT prophylaxis ordered?: SC heparin ASSESSMENT AND PLAN: Patient is a 63 yo female who was admitted for acute hypoxic respiratory failure secondary to influenza and multifocal pneumonia. The following problems will be managed during hospitalization: PROBLEMS: Acute hypoxic respiratory failure secondary to influenza A infection and likely multifocal pneumonia (improving) -Patient appears to be clinically improving. SOB and cough improving. Currently has O2 sats >92% on RA -CT possible multifocal pneumonia -CRP and procalcitonin down trending -c/w azithromycin (day 5) and ceftriaxone (day 3). -Transition IV methylprednisolone 40 mg q8h to prednisone 40 mg PO daily -C/w with Tamiflu for 5 days (12/23/18) -C/w DuoNeb's, Proventil nebulizer and chest PT Staph Bacteremia -Blood cultures 12/18/18 x2 positive for staphylococcus hominis -repeat culture 12/20/18 preliminary has no growth. -She is afebrile, normotensive, normal HR. -Patient is currently on ceftriaxone (day 2) -Echo 12/18/18 showed no valve vegetations -No evidence of skin breakdown -Consulted ID, appreciate their recommendations Newly Diagnosed Diabetic -Blood sugar normalizing -A1c is 6.8 -c/w ISS and supplement with 10 units Levemir at night -Upon discharge consider metformin Acute COPD exacerbation (resolved) -Does not have a formal diagnosis of COPD -Significant smoking history and patient's presentation, likely the patient does have COPD and will need outpatient follow-up with defensive secondary coach. -c/w Solu-Medrol taper, Advair, Spiriva, nebulizer treatment. Rhabdomyolysis Likely secondary to work of breathing (Resolved) -ambulating with no problem and no pain on palpation Lactic acidosis (resolved) Obesity -complicating care. Poor compliance. -establish with primary care provider as an outpatient. Smoking -cessation counseling provided PT/OT -consulted, appreciate their recommendation DVT prophylaxis -Heparin subcu. DISPOSITION: ID consult. PT VS, I&O, 24H, Fishbone Vital Signs/I&O Vital Signs Date Time Temp Pulse Resp B/P (MAP) Pulse Ox O2 Delivery O2 Flow Rate FiO2 12/22/18 08:00 97.7 76 18 143/78 (99) 95 12/22/18 04:21 0.0 12/21/18 12:09 Room Air I&O- Last 24 Hours up to 6 AM 12/22/18 06:00 Intake Total 1095 ml Output Total 1450 ml Balance -355 ml Laboratory Data 24H LABS Laboratory Tests 2 12/21/18 11:42: Bedside Glucose (Misc Panel) 289H 12/21/18 17:05: Bedside Glucose (Misc Panel) 198H 12/21/18 22:09: Bedside Glucose (Misc Panel) 223H 12/22/18 04:41: Nucleated Red Blood Cells % (auto) 0.0, Anion Gap 7L, Glomerular Filtration Rate > 60.0, Blood Urea Nitrogen 26H, Creatinine 0.91, Sodium Level 143, Potassium L evel 3.7, Chloride Level 108H, Carbon Dioxide Level 28, Calcium Level 8.3L, Aspartate Amino Transf (AST/SGOT) 56H, Alanine Aminotransferase (ALT/SGPT) 60, Alkaline Phosphatase 110, Total Bilirubin 0.6, Total Protein 6.3L, Albumin 2.2L, Magnesium Level 1.9, C-Reactive Protein, Quantitative 1.86H, Albumin/Globulin Ratio 0.54L CBC/BMP Laboratory Tests 12/22/18 04:41 Red Blood Count 3.93 L, Mean Corpuscular Volume 91.3, Mean Corpuscular Hemoglobin 30.8, Mean Corpuscular Hemoglobin Concent 33.7, Red Cell Distribution Width 15.3 H, Calcium Level 8.3 L, Aspartate Amino Transf (AST/SGOT) 56 H, Alanine Aminotransferase (ALT/SGPT) 60, Alkaline Phosphatase 110, Total Bilirubin 0.6, Total Protein 6.3 L, Albumin 2.2 L Microbiology Microbiology 12/20/18 Blood Culture - Preliminary, Resulted No Growth after 48 hours. All Specime... 12/17/18 Blood Culture - Final, Complete Staphylococcus Hominis Ssp Jaya 12/17/18 Blood Culture - Final, Complete Staphylococcus Hominis Ssp Jaya 12/18/18 Gastrointestinal Tract Panel (PCR) - Final, Complete 12/18/18 MRSA Screen - Final, Complete GME ATTESTATION GME ATTESTATION My faculty preceptor for this patient encounter was physically present during the encounter and was fully available. All aspects of the patient interview, examination, medical decision making process, and medical care plan development were reviewed and approved by the faculty preceptor. The faculty preceptor is aware and concurs with the plan as stated in the body of this note and will attest to such by his/her cosignature. MELANIE PARIKH S-III Dec 22, 2018 12:55
--- NOTE | 2018-12-22 18:31 | REP ---
Clinical: Shortness of breath. Flu-like symptoms. Technique: PA and lateral. Findings: Bibasilar air space disease and small pleural reactions consistent with pneumonia/atelectasis. Electronically Signed by Wilmer Mccarthy MD 12/22/2018 06:23 P
[2018-12-22 20:00] VITALS: BP 131/69
[2018-12-22] MEDS: LEVEMIR (INSULIN DETEMIR) 1 UNITS/0.01ML SC SCH (20:51)
--- NOTE | 2018-12-22 22:59 | CR ---
DATE OF CONSULTATION: 12/22/2018 INFECTIOUS DISEASE CONSULTATION Asked to consult by the hospitalist for evaluation of Staphylococcus hominis positive blood cultures in a patient who was admitted with influenza and pneumonia. HISTORY OF PRESENT ILLNESS: Jannette is a 63-year-old female with no significant past medical history who had not been seen by a primary care provider for many years. She presented to the emergency room with a complaint of cough, aches and chills for the past for a few days prior to admission. She also stated that she had a cough for about 2-1/2 months prior that gotten worse over the past few days before admission. When she arrived to the emergency room, she had an oxygen saturation of 83% on room air. She was given nebulizers, steroids and placed on 2 liters nasal cannula with improvement. A rapid influenza test was done which was positive for influenza A. She was treated with Tamiflu for 5 days, as well as antibiotics for community-acquired pneumonia. She received IV Rocephin and Zithromax. The patient is clinically better, but she still complains of some shortness of breath and cough. Her oxygen saturation is 91 to 92% on room air. PAST MEDICAL HISTORY: The patient has a chronic cough, tobacco abuse but does not carry a diagnosis of chronic obstructive pulmonary disease (COPD). Recent diagnosis [id number] diabetes, HbA1c was 6.8 this admission. PAST SURGICAL HISTORY: Cholecystectomy for gallstones. SOCIAL HISTORY: She is a . She states her had unexpectedly when he woke up one morning in July. She is not sure the cause of his . She right now lives with daughter's boyfriend and their grandchildren. She smokes at least a pack of cigarettes a day. Does not drink. ALLERGIES: No known drug allergies. MEDICATIONS: Levemir 10 units subcu nightly, methylprednisolone 40 mg IV every 8 hours, ceftriaxone 1 gram IV every 24 hours, heparin subcu, insulin sliding scale, Tamiflu 30 mg by mouth twice a day, Advair two puffs inhaled twice a day, Spiriva one inhalation daily, Cepacol as needed, albuterol/Atrovent nebs every 4 hours as needed,, which the patient has been refusing. LABORATORY DATA: White count on admission was 9.3; it is currently 8.6, hemoglobin 12.1, hematocrit 34.9, platelets 236. Sodium 143, potassium 3.7, chloride 108, bicarbonate 28, BUN 26, creatinine 0.91, glucose 240, calcium 8.3, magnesium 1.9, bilirubin 0.6, AST 56, ALT 60, alkaline phosphatase 110, CRP 1.86. On physical exam, she is a healthy looking female in no acute distress. Heart: Normal S1, S2. No murmurs, rubs or gallops appreciated. Lungs: Diminished breath sounds at both bases, at least a third way up or decreased. A few expiratory rhonchi anteriorly. Abdomen: Soft, nontender. No hepatosplenomegaly. Back: No costovertebral angle (CVA) or lumbosacral tenderness. Extremities: No clubbing, cyanosis or edema. Oropharynx: Clear with no lesions. No thrush. Neurologic Exam: Normal upper and lower extremity strength. Cranial nerves intact. Neurologic intact. Alert and oriented times three. Skin: No rashes. +2 dorsalis pedis bilaterally. IMAGING STUDIES: CT angiogram done on admission showed bibasilar consolidation, diffuse chronic interstitial changes with moderate bibasilar fibrosis and moderate lower lobe consolidations. Abdominal ultrasound done for abdominal pain and transaminitis shows a prior cholecystectomy and possible mild renal disease. Also, procalcitonin done on 12/18/2018 was 41.04 and on 12/22/2018 was 2.33. Blood cultures two sets done on 12/17/2018 at 1701 hours and 1806 hours showed Staphylococcus hominis, subspecies hominis only resistant to penicillin, both pathogens. Gastrointestinal (GI) panel was negative. Methicillin-resistant Staphylococcus aureus (MRSA) screen was negative and repeat blood culture on 12/20/2018 were negative. Echocardiogram showed no evidence of endocarditis, normal ejection fraction. Aortic valve sclerosis with trivial stenosis. No aortic regurgitation. IMPRESSION: This is a 63-year-old female with a history of tobacco abuse, probable COPD, who was admitted with influenza pneumonia and superimposed bacterial pneumonia as her procalcitonin was quite elevated. Her blood cultures, two sets, done an hour apart had Staphylococcus hominis species. The patient does not have a central line, pacemaker, prosthetic joints or valve replacement. Most often this species is a skin contaminant and not a real pathogen unless there is a foreign body. This is not the case in this patient. I suspect it is a contaminant. There has not been reported cases of Staphylococcus hominis with superimposed pneumonia after the flu. I suspect she did have pneumonia, but possibly from Staphylococcus aureus and not Staphylococcus hominis. PLAN: Discontinue IV Zithromax. There is no reason to cover for atypical pneumonia. Obtain urine Legionella and pneumococcal antigen. Adjust the dose of Tamiflu to 75 mg by mouth twice a day. The patient was underdosed at 30 mg twice a day, to finish a 10-day course. Switch IV Solu-Medrol to oral prednisone. The patient is clinically improving. Switch IV Rocephin to oral Omnicef to finish a 10-day course. Thank you for the consultation. SHIRA
[2018-12-23] VITALS (7 sets, daily range): BP systolic 138–155; BP diastolic 74–82
[2018-12-23] MEDS: cefTRIAXone SOD 1 GM in D5W MINI-BAG PLUS 50 ML IV SCH (00:32)
[2018-12-23] MEDS: methylPREDNISolone INJ 125 MG/2 ML VIAL (J2930) IV SCH ×2 (00:32→08:26)
[2018-12-23] MEDS: IPRATROPIUM 0.5MG/ALBUTEROL 2.5MG INH SOL UD 3ML (DUONEB)(J7620) NEB SCH ×6 (04:00→23:45)
[2018-12-23 05:32] LABS: HEMATOCRIT 37.7 % (36.0-47.0); HEMOGLOBIN 12.9 g/dl (12.0-15.5); MEAN CORPUSCULAR HEMOGLOBIN 31.1 pg (27.0-33.0); MEAN CORPUSCULAR HGB CONC 34.2 g/dl (32.0-36.5); MEAN CORPUSCULAR VOLUME 90.8 fl (80.0-96.0); PLATELET COUNT, AUTOMATED 257 10^3/uL (150-450); RED BLOOD COUNT 4.15 10^6/uL (4.00-5.40); WHITE BLOOD COUNT 9.6 10^3/uL (4.0-10.0)
[2018-12-23] MEDS: SLF 3 ML SYR IV SCH ×3 (05:40→21:21)
[2018-12-23] MEDS: HEPARIN SOD (PORCINE) 5000 UNITS/ML VIAL SQ SCH ×3 (05:41→21:21)
[2018-12-23 06:01] LABS: ALBUMIN 2.3 GM/DL (3.2-5.2); ALT/SGPT 68 U/L (12-78); BILIRUBIN,TOTAL 0.5 MG/DL (0.2-1.0); BLOOD UREA NITROGEN 24 MG/DL (7-18); C REACTIVE PROTEIN QUANTITATIV 1.09 MG/DL (0.00-0.30); CALCIUM LEVEL 8.4 MG/DL (8.8-10.2); CARBON DIOXIDE LEVEL 27 MEQ/L (21-32); CHLORIDE LEVEL 104 MEQ/L (98-107); GLOMERULAR FILTRATION RATE > 60.0 (>45); GLUCOSE, FASTING 206 MG/DL (70-100); MAGNESIUM LEVEL 1.9 MG/DL (1.8-2.4); SODIUM LEVEL 138 MEQ/L (136-145); TOTAL PROTEIN 6.7 GM/DL (6.4-8.2)
[2018-12-23] MEDS: TIOTROPIUM INHALER/CAPSULE (SPIRIVA) INH SCH (07:31)
[2018-12-23] MEDS: ADVAIR HFA 230/21MCG INHALER INH SCH ×2 (07:31→20:02)
[2018-12-23] MEDS: OSELTAMIVIR PHOSPHATE 75 MG CAP (TAMIFLU) PO SCH ×2 (08:24→20:29)
[2018-12-23] MEDS: HumaLOG INSULIN (NovoLOG) PER UNIT SC SCH ×5 (08:25→20:40)
[2018-12-23] MEDS: CEFDINIR 300 MG CAP (OMNICEF) PO SCH ×2 (09:00→20:33)
--- NOTE | 2018-12-23 13:10 | IPNPDOC ---
Date Seen The patient was seen on 12/23/18. Progress Note SUBJECTIVE: Patient is a 63 yo female who was admitted for acute hypoxic respiratory failure secondary to influenza and multifocal pneumonia. She was seen this morning sitting on the edge of the bed on room air. She said that she is feeling better today but is very tired and did not sleep well last night. SOB and cough have improved. Patient said she would work with PT. Nursing reported no overnight events. OBJECTIVE PHYSICAL EXAMINATION: VITAL SIGNS: Please see below. GENERAL: Alert, fatigued, A&OX3. She is on RA, talking in full sentences, no hoarseness in voice HEENT: EOMI, PERRLA, supple CARDIOVASCULAR: RRR, normal S1 and S2. no murmurs, rubs, or gallops RESPIRATORY: Diminished breath sounds in lower lungs bilaterally. Minimal wheezing at lung base. No dullness to percussion, no egophony appreciated. (Improved) ABDOMINAL: obese, soft, non tender, positive breath sounds EXTREMITIES: no skin breakdown, no rashes LABORATORY DATA, IMAGING STUDIES, MICROBIOLOGY: Please see below. DVT prophylaxis ordered?: SC heparin ASSESSMENT AND PLAN: Patient is a 63 yo female who was admitted for acute hypoxic respiratory failure secondary to influenza and multifocal pneumonia. The following problems will be managed during hospitalization: PROBLEMS: Acute hypoxic respiratory failure secondary to influenza A infection and likely multifocal pneumonia (improving) -Patient appears to be clinically improving. SOB and cough improving. Currently has O2 sats >92% on RA -CXR 12/22/18: Bibasilar air space disease and small pleural reactions consistent with pneumonia/atelectasis -CRP and procalcitonin down trending. Urine legionella and strep pneumo antigen pending -d/c azithromycin -Increase dose of Tamiflu to 75 mg BID and finish 10 day course (12/28/18) -Transition IV Rocephin to Omnicef to finish 10 day course (12/30/18) -Transition IV methylprednisolone to prednisone 40 mg PO daily -C/w DuoNeb's, Proventil nebulizer and chest PT Staph Bacteremia -Blood cultures 12/18/18 x2 positive for staphylococcus hominis -repeat culture 12/20/18 preliminary has no growth. -She remains afebrile, normotensive, normal HR. -Echo 12/18/18 showed no valve vegetations -No evidence of skin breakdown -Consulted ID, appreciate their recommendations Newly Diagnosed Diabetic -Blood sugar normalizing -A1c is 6.8 -c/w ISS and supplement with 10 units Levemir at night -Upon discharge consider metformin Acute COPD exacerbation (resolved) -Does not have a formal diagnosis of COPD -Significant smoking history and patient's presentation, likely the patient does have COPD and will need outpatient follow-up with associate merchandise planner. -c/w Solu-Medrol taper, Advair, Spiriva, nebulizer treatment. Rhabdomyolysis Likely secondary to work of breathing (Resolved) -ambulating with no problem and no pain on palpation Lactic acidosis (resolved) Obesity -complicating care. Poor compliance. -establish with primary care provider as an outpatient. Smoking -cessation counseling provided PT/OT -consulted, appreciate their recommendation DVT prophylaxis -Heparin subcu. DISPOSITION: PT. Clinical improvement. VS, I&O, 24H, Fishbone Vital Signs/I&O Vital Signs Date Time Temp Pulse Resp B/P (MAP) Pulse Ox O2 Delivery O2 Flow Rate FiO2 12/23/18 04:30 97.8 72 20 142/74 (96) 94 12/22/18 04:21 0.0 12/21/18 12:09 Room Air I&O- Last 24 Hours up to 6 AM 12/23/18 06:00 Intake Total 1215 ml Output Total 1300 ml Balance -85 ml Laboratory Data 24H LABS Laboratory Tests 2 12/22/18 11:40: Bedside Glucose (Misc Panel) 206H 12/22/18 17:14: Bedside Glucose (Misc Panel) 208H 12/22/18 17:40: 12/22/18 20:46: Bedside Glucose (Misc Panel) 241H 12/23/18 05:15: Nucleated Red Blood Cells % (auto) 0.0, Anion Gap 7L, Glomerular Filtration Rate > 60.0, Blood Urea Nitrogen 24H, Creatinine 0.90, Sodium Level 138, Potassium Level 4.0, Chloride Level 104, Carbon Dioxide Level 27, Calcium Level 8.4L, Aspartate Amino Transf (AST/SGOT) 55H, Alanine Aminotransferase (ALT/SGPT) 68, Alkaline Phosphatase 119H, Total Bilirubin 0.5, Total Protein 6.7, Albumin 2.3L, Magnesium Level 1.9, C-Reactive Protein, Quantitative 1.09H, Albumin/Globulin Ratio 0.52L CBC/BMP Laboratory Tests 12/23/18 05:15 Red Blood Count 4.15, Mean Corpuscular Volume 90.8, Mean Corpuscular Hemoglobin 31.1, Mean Corpuscular Hemoglobin Concent 34.2, Red Cell Distribution Width 14.9 H, Calcium Level 8.4 L, Aspartate Amino Transf (AST/SGOT) 55 H, Alanine Aminotr ansferase (ALT/SGPT) 68, Alkaline Phosphatase 119 H, Total Bilirubin 0.5, Total Protein 6.7, Albumin 2.3 L Microbiology Microbiology 12/20/18 Blood Culture - Preliminary, Resulted No Growth after 48 hours. All Specime... 12/17/18 Blood Culture - Final, Complete Staphylococcus Hominis Ssp Jaya 12/17/18 Blood Culture - Final, Complete Staphylococcus Hominis Ssp Jaya 12/18/18 Gastrointestinal Tract Panel (PCR) - Final, Complete 12/18/18 MRSA Screen - Final, Complete GME ATTESTATION GME ATTESTATION My faculty preceptor for this patient encounter was physically present during the encounter and was fully available. All aspects of the patient interview, examination, medical decision making process, and medical care plan development were reviewed and approved by the faculty preceptor. The faculty preceptor is aware and concurs with the plan as stated in the body of this note and will attest to such by his/her cosignature. MELANIE PARIKH S-III Dec 23, 2018 08:00
--- NOTE | 2018-12-23 14:37 | IPN ---
DATE: 12/23/2018 Mrs. Calero continues complaining of not feeling well, mostly because of a cough and shortness of breath. She looks well. She is not wearing oxygen. No nausea, vomiting or diarrhea. No abdominal pain. Temperature is 98.2, pulse 83, respirations 18, blood pressure 140/76, oxygen saturation 92% on room air. Heart: Normal S1, S2. Systolic ejection murmur 2/6 at left upper sternal border. Lungs: Diminished breath sounds at the bases with few exterior wheezes on the right side and rhonchi anteriorly. Abdomen: Soft, nontender. No hepatosplenomegaly. Extremities: No edema. HEENT: Oropharynx is edentulous, clear. No lesions. LABORATORY DATA: White count is 9.6, hemoglobin 12.9, hematocrit 37.7, platelet 257. Sodium 138, potassium 4, chloride 104, bicarbonate 27, BUN 24, creatinine 0.9, glucose 206, calcium 8.4, magnesium 1.9, AST 55, ALT 66, alkaline phos 119. C-reactive protein 1.09, hepatitis C negative. Urine Legionella antigen and urine pneumococcal antigen are pending. Blood culture from 12/20 was negative. IMAGING STUDIES: Chest x-ray, PA and lateral, done 12/22 shows by basilar airspace disease and small pleural reaction consistent with pneumonia, atelectasis. IMPRESSION: 1. Influenza A pneumonia with superimposed bacterial pneumonia. The patient is doing better on IV ceftriaxone. The patient could be switched to oral cefdinir 300 mg twice a day. Would suggest continuing Tamiflu for 10 days at a dose of 75 mg twice a day. 2. Chronic obstructive pulmonary disease (COPD). The patient is on Advair two puffs twice a day and Spiriva one inhalation daily. 3. Coag negative with hominis in two sets of blood culture. These are most likely skin contaminants. The patient has no foreign body, prosthetic material, or line to suggest any source of infection and this is not a typical cause of pneumonia. I have reviewed the literature. PLAN: Continue with cefdinir and Tamiflu for 4 days.
[2018-12-23] MEDS: predniSONE 20 MG TAB PO SCH (17:15)
[2018-12-23] MEDS: LEVEMIR (INSULIN DETEMIR) 1 UNITS/0.01ML SC SCH (20:30)
[2018-12-24] MEDS: IPRATROPIUM 0.5MG/ALBUTEROL 2.5MG INH SOL UD 3ML (DUONEB)(J7620) NEB SCH ×5 (03:22→20:00)
[2018-12-24 04:00] VITALS: BP 162/100
[2018-12-24] MEDS: SLF 3 ML SYR IV SCH ×3 (05:06→21:05)
[2018-12-24] MEDS: HEPARIN SOD (PORCINE) 5000 UNITS/ML VIAL SQ SCH ×3 (05:06→21:02)
[2018-12-24 05:27] LABS: HEMATOCRIT 38.2 % (36.0-47.0); MEAN CORPUSCULAR HEMOGLOBIN 30.6 pg (27.0-33.0); MEAN CORPUSCULAR VOLUME 89.9 fl (80.0-96.0); PLATELET COUNT, AUTOMATED 259 10^3/uL (150-450); RED BLOOD COUNT 4.25 10^6/uL (4.00-5.40); WHITE BLOOD COUNT 9.3 10^3/uL (4.0-10.0)
[2018-12-24 05:54] LABS: ALBUMIN 2.2 GM/DL (3.2-5.2); ALT/SGPT 63 U/L (12-78); BILIRUBIN,TOTAL 0.8 MG/DL (0.2-1.0); BLOOD UREA NITROGEN 26 MG/DL (7-18); C REACTIVE PROTEIN QUANTITATIV 0.63 MG/DL (0.00-0.30); CALCIUM LEVEL 7.9 MG/DL (8.8-10.2); CARBON DIOXIDE LEVEL 27 MEQ/L (21-32); CHLORIDE LEVEL 103 MEQ/L (98-107); CREATININE FOR GFR 0.87 MG/DL (0.55-1.30); GLOMERULAR FILTRATION RATE > 60.0 (>45); GLUCOSE, FASTING 202 MG/DL (70-100); MAGNESIUM LEVEL 1.8 MG/DL (1.8-2.4); POTASSIUM SERUM 3.6 MEQ/L (3.5-5.1); SODIUM LEVEL 138 MEQ/L (136-145); TOTAL PROTEIN 6.4 GM/DL (6.4-8.2)
[2018-12-24] MEDS: ADVAIR HFA 230/21MCG INHALER INH SCH ×2 (07:27→20:39)
[2018-12-24] MEDS: TIOTROPIUM INHALER/CAPSULE (SPIRIVA) INH SCH (07:27)
[2018-12-24 08:00] VITALS: BP 116/75
[2018-12-24] MEDS: OSELTAMIVIR PHOSPHATE 75 MG CAP (TAMIFLU) PO SCH ×2 (08:16→21:02)
[2018-12-24] MEDS: predniSONE 20 MG TAB PO SCH (08:16)
[2018-12-24] MEDS: CEFDINIR 300 MG CAP (OMNICEF) PO SCH ×2 (08:16→21:04)
[2018-12-24] MEDS: HumaLOG INSULIN (NovoLOG) PER UNIT SC SCH ×4 (08:17→21:02)
[2018-12-24 12:00] VITALS: BP 131/72
[2018-12-24] MEDS ORDERED: CEFD300CAP PO (12:38)
[2018-12-24] MEDS ORDERED: OSEL75CA2 PO (12:38)
[2018-12-24] MEDS ORDERED: METF500T13 PO ×2 (12:38→13:05)
[2018-12-24] MEDS ORDERED: TIOT18INH INH (12:38)
[2018-12-24] MEDS ORDERED: PRED10TA2 PO ×2 (12:42→13:05)
[2018-12-24] MEDS ORDERED: CEFD1CAP8 PO (13:05)
[2018-12-24] MEDS ORDERED: OSEL75CA PO (13:05)
--- NOTE | 2018-12-24 13:30 | DS.PDOC ---
Discharge Summary General Date of Admission Dec 18, 2018 at 10:15 Date of Discharge 12/24/2018 Discharge Summary PCP: unknown PROCEDURES PERFORMED DURING STAY: None. ADMITTING DIAGNOSES: 1. Hypoxia. 2. Flu A positive. 3. Rhabdomyolysis. DISCHARGE DIAGNOSES: Acute hypoxic respiratory failure secondary to influenza A infection and likely multifocal pneumonia Staph hominis Bacteremia likely contaminant Newly Diagnosed Diabetic Acute COPD exacerbation Rhabdomyolysis Likely secondary to work of breathing Lactic acidosis Obesity Poor compliance. History of tobacco abuse COMPLICATIONS/CHIEF COMPLAINT: Hypoxia/ Influenza A. HISTORY OF PRESENT ILLNESS: 63-year-old female with unknown past medical history because she has never seen a primary medical doctor who presents to the emergency room with dry cough and aches and chills for the past four days. She actually claims that the cough has been going on for the past couple of months but has worsened in the past few days and she has increasing shortness of breath. When she came to the ER, she was hypoxic at 83% on room air, was given three nebulizer treatments, 125 mg of IV Solu-Medrol and was placed on 2 liters nasal cannula with marked improvement in her oxygenation, now saturating at 93%. The patient says she does feel better though she was still having a dry cough while I was interviewing her. She has not been exposed to anyone sick that she knows of in the recent past, and again, to mention she has never seen a primary medical doctor so she is on no medications and does not know of any medical problems that she is aware of. She will be admitted for further management HOSPITAL COURSE:-The patient is admitted she was given a nebulizer, IV steroids , oxygen and Tamiflu for her positive influenza a. She was also started on IV antibiotics to cover for multifocal community-acquired pneumonia. She had blood cultures drawn and coincidentally 2 on admission did show growth of staph hominis. Infectious disease was consulted who states that theyre probably contaminant for there is no documented literature on staph hominis pneumoniae. Also ON admission her A1c was elevated at 6.8 and the patient was never previously diagnosed with diabetes. She was started on Levemir 10 units while admitted. Because she has a history of tobacco abuse we do recommend that she has an outpatient spirometry/PFT test done. Shes never had a formal diagnosis of COPD. On the day of discharge was recommended for her to complete by mouth antibiotics and prednisone taper. Metformin 500 mg twice a day was started for her as well and To follow a consistent carbohydrate diet. She worked with PT while admitted and the day of discharge she was stable to go home. DISCHARGE MEDICATIONS: Please see below. ALLERGIES: Please see below. PHYSICAL EXAMINATION ON DISCHARGE: VITAL SIGNS: Please see below. GENERAL: Alert, fatigued, A&OX3. She is on RA, talking in full sentences, no hoarseness in voice HEENT: EOMI, PERRLA, supple CARDIOVASCULAR: RRR, normal S1 and S2. no murmurs, rubs, or gallops RESPIRATORY: Diminished breath sounds in lower lungs bilaterally. Minimal wheezing at lung base. No dullness to percussion, no egophony appreciated. ABDOMINAL: obese, soft, non tender, positive breath sounds EXTREMITIES: no skin breakdown, no rashes LABORATORY DATA: Please see below. IMAGIN12/17/2018 Chest x-ray Superimposed bibasilar atelectasis (left greater than right). 12/18/2018 CT angios of the chest Impression: 1. No evidence for pulmonary embolus. Normal thoracic aorta. 2. Diffuse chronic interstitial changes with moderate bibasilar fibrosis. 3. Small scattered bilateral infiltrates along with moderate lower lobe consolidations suggesting multifocal pneumonia. Correlation and follow up to resolution is recommended. Abdominal ultrasound Impression: 1. Prior cholecystectomy. 2. Possible mild renal disease. 12/22/2018 Chest x-ray Findings: Bibasilar air space disease and small pleural reactions consistent with pneumonia/atelectasis. PROGNOSIS: Fair ACTIVITY: As tolerated. DIET: Consistent carbohydrate DISPOSITION: Home DISCHARGE INSTRUCTIONS: 1. Follow-up with PCP in 7-10 days 2. The antibiotics and Tamiflu as prescribed 3. Complete prednisone taper as prescribed 4. Start metformin 1 tablet twice a day and follow a diabetic friendly diet 5. Consider spirometry/PFT testing outpatient to see if underlying COPD 6. His symptoms return or worsen please call your PCP or return to the ER. DISCHARGE CONDITION: Stable. TIME SPENT ON DISCHARGE: Greater than35 minutes. Vital Signs/I&Os Vital Signs Date Time Temp Pulse Resp B/P (MAP) Pulse Ox O2 Delivery O2 Flow Rate FiO2 12/24/18 12:00 97.7 87 18 131/72 (91) 98 12/22/18 04:21 0.0 12/21/18 12:09 Room Air I&O- Last 24 Hours up to 6 AM 12/24/18 05:59 Intake Total 720 ml Output Total 2350 ml Balance -1630 ml Laboratory Data Labs 24H Laboratory Tests 2 12/23/18 17:07: Bedside Glucose (Misc Panel) 228H 12/23/18 20:13: Bedside Glucose (Misc Panel) 211H 12/24/18 04:37: Nucleated Red Blood Cells % (auto) 0.0, Anion Gap 8, Glomerular Filtration Rate > 60.0, Blood Urea Nitrogen 26H, Creatinine 0.87, Sodium Level 138, Potassium Level 3.6, Chloride Level 103, Carbon Dioxide Level 27, Calcium Level 7.9L, Aspartate Amino Transf (AST/SGOT) 40H, Alanine Aminotransferase (ALT/SGPT) 63, Alkaline Phosphatase 113, Total Bilirubin 0.8#, Total Protein 6.4, Albumin 2.2L, Magnesium Level 1.8, C-Reactive Protein, Quantitative 0.63H, Albumin/Globulin Ratio 0.52L 12/24/18 12:16: Bedside Glucose (Misc Panel) 112 CBC/BMP Laboratory Tests 12/24/18 04:37 Red Blood Count 4.25, Mean Corpuscular Volume 89.9, Mean Corpuscular Hemoglobin 30.6, Mean Corpuscular Hemoglobin Concent 34.0, Red Cell Distribution Width 14.6 H, Calcium Level 7.9 L, Aspartate Amino Transf (AST/SGOT) 40 H, Alanine Aminotransferase (ALT/SGPT) 63, Alkaline Phosphatase 113, Total Bilirubin 0.8 #, Total Protein 6.4, Albumin 2.2 L FSBS Laboratory Tests Test 12/23/18 17:07 12/23/18 20:13 12/24/18 12:16 Range/Units Bedside Glucose (Misc Panel) 228 211 112 80-115 MG/DL Microbiology Microbiology 12/20/18 Blood Culture - Preliminary, Resulted No Growth after 72 hours. All specime... 12/17/18 Blood Culture - Final, Complete Staphylococcus Hominis Ssp Jaya 12/17/18 Blood Culture - Final, Complete Staphylococcus Hominis Ssp Jaya 12/18/18 Gastrointestinal Tract Panel (PCR) - Final, Complete 12/18/18 MRSA Screen - Final, Complete Discharge Medications Scheduled Cefdinir (Cefdinir) 300 Mg Cap, 300 MG PO BID Metformin Hydrochloride (Metformin HCl) 500 Mg Tab, 1 TAB PO BID Oseltamivir Phosphate (Oseltamivir Phosphate) 75 Mg Cap, 75 MG PO BID Prednisone (Prednisone) 10 Mg Tab, 10 MG PO TAPER Take 4 tabs daily x 3 days, then 3 tabs daily x 3 days, then 2 tabs daily x 3 days, then 1 tab daily x 3 days and stop Tiotropium [place] Monohydrate (Spiriva Handihaler) 5 Inhalation/Inhaler Powd, 1 INHALATION INH DAILY@08 Allergies Coded Allergies: No Known Allergies (Unverified , 12/17/18) GME ATTESTATION GME ATTESTATION My faculty preceptor for this patient encounter was physically present during the encounter and was fully available. All aspects of the patient interview, examination, medical decision making process, and medical care plan development were reviewed and approved by the faculty preceptor. The faculty preceptor is aware and concurs with the plan as stated in the body of this note and will attest to such by his/her cosignature. TRENTON BRENNAN DO Dec 24, 2018 13:30
[2018-12-24 16:00] VITALS: BP 145/78
[2018-12-24 20:00] VITALS: BP 138/79
[2018-12-24] MEDS: LEVEMIR (INSULIN DETEMIR) 1 UNITS/0.01ML SC SCH (21:02)
[2018-12-25] VITALS: BP 138/80
[2018-12-25] MEDS: IPRATROPIUM 0.5MG/ALBUTEROL 2.5MG INH SOL UD 3ML (DUONEB)(J7620) NEB SCH ×5 (00:15→15:12)
[2018-12-25 04:00] VITALS: BP 145/84
[2018-12-25 05:14] LABS: HEMATOCRIT 39.4 % (36.0-47.0); HEMOGLOBIN 13.5 g/dl (12.0-15.5); MEAN CORPUSCULAR HEMOGLOBIN 31.5 pg (27.0-33.0); MEAN CORPUSCULAR HGB CONC 34.3 g/dl (32.0-36.5); MEAN CORPUSCULAR VOLUME 91.8 fl (80.0-96.0); PLATELET COUNT, AUTOMATED 238 10^3/uL (150-450); RED BLOOD COUNT 4.29 10^6/uL (4.00-5.40); WHITE BLOOD COUNT 10.2 10^3/uL (4.0-10.0)
[2018-12-25] MEDS: SLF 3 ML SYR IV SCH (05:24)
[2018-12-25] MEDS: HEPARIN SOD (PORCINE) 5000 UNITS/ML VIAL SQ SCH ×2 (05:24→14:30)
[2018-12-25 05:37] LABS: ALBUMIN 2.2 GM/DL (3.2-5.2); BILIRUBIN,TOTAL 0.7 MG/DL (0.2-1.0); CALCIUM LEVEL 8.3 MG/DL (8.8-10.2); CREATININE FOR GFR 1.07 MG/DL (0.55-1.30); GLOMERULAR FILTRATION RATE 55.3 (>45); MAGNESIUM LEVEL 1.8 MG/DL (1.8-2.4); TOTAL PROTEIN 6.1 GM/DL (6.4-8.2)
[2018-12-25] MEDS: TIOTROPIUM INHALER/CAPSULE (SPIRIVA) INH SCH (07:20)
[2018-12-25] MEDS: ADVAIR HFA 230/21MCG INHALER INH SCH (07:21)
[2018-12-25 08:00] VITALS: BP 141/82
[2018-12-25] MEDS: predniSONE 20 MG TAB PO SCH (08:09)
[2018-12-25] MEDS: OSELTAMIVIR PHOSPHATE 75 MG CAP (TAMIFLU) PO SCH (08:09)
[2018-12-25] MEDS: HumaLOG INSULIN (NovoLOG) PER UNIT SC SCH ×3 (08:09→17:06)
[2018-12-25] MEDS: CEFDINIR 300 MG CAP (OMNICEF) PO SCH (08:11)
[2018-12-25 12:00] VITALS: BP 142/83
--- NOTE | 2018-12-26 06:50 | IPNPDOC ---
Date Seen The patient was seen on 12/25/18. Progress Note SUBJECTIVE: Patient has no complaints OBJECTIVE PHYSICAL EXAMINATION: VITAL SIGNS: Please see below. GENERAL: deshevelled elderly female, appears older than stated age, speaking in complete sentences nad HEENT: CN 2-12 grossly intact CARDIOVASCULAR: S1S2 regular. RESPIRATORY: CTA b/l. ABDOMINAL: Bowel sounds are present the abdomen is soft EXTREMITIES: No clubbing cyanosis or edema LABORATORY DATA, IMAGING STUDIES, MICROBIOLOGY: Please see below. DVT prophylaxis ordered?: Heparin ASSESSMENT AND PLAN: This is a 63-year-old female with hypoxic respiratory failure secondary to influenza A. PROBLEMS: 1. Hypoxic respiratory failure secondary to influenza A: Patient symptoms didn't completely resolve she is at her functional baseline she has been cleared by PT she wasn't able to get transportation home yesterday and today this was arranged for her no changes to previously dictated discharge summary from 12/24/2018 please see the summary for full details. The patient was visited today and all efforts were made to ensure that she has a safe disposition VS, I&O, 24H, Fishbone Vital Signs/I&O Vital Signs Date Time Temp Pulse Resp B/P (MAP) Pulse Ox O2 Delivery O2 Flow Rate FiO2 12/25/18 12:00 97.1 92 18 142/83 (102) 90 12/22/18 04:21 0.0 12/21/18 12:09 Room Air I&O- Last 24 Hours up to 6 AM 12/26/18 06:00 Intake Total 960 ml Output Total 850 ml Balance 110 ml Laboratory Data 24H LABS Laboratory Tests 2 12/25/18 11:23: Bedside Glucose (Misc Panel) 166H 12/25/18 16:33: Bedside Glucose (Misc Panel) 338H Microbiology Microbiology 12/20/18 Blood Culture - Final, Complete NO GROWTH AFTER 5 DAYS 12/17/18 Blood Culture - Final, Complete Staphylococcus Hominis Ssp Jaya 12/17/18 Blood Culture - Final, Complete Staphylococcus Hominis Ssp Jaya 12/18/18 Gastrointestinal Tract Panel (PCR) - Final, Complete 12/18/18 MRSA Screen - Final, Complete YASMINE MCBRIDE MD Dec 26, 2018 06:50
[2018-12-27 00:06] LABS: BODY FLUID CULTURE Not Indicated (.); LEGIONELLA ANTIGEN URINE Negative (Negative); ORGANISM ID Not indicated. (.); SPECIMEN SOURCE Urine (.); URINE STREP PNEUMONIAE ANTIGEN Negative (Negative)
== END 2018-12-25 18:21 | disposition home or self-care (01) | DRG 139 ==
LOC: M ED 16:48 → EDBD 16:48 → M ED INP 18:43 → M PED 20:57 → M MSPAV 12-18 05:12 → OBSVTOIN 12-18 10:15 → M PCU 12-18 10:52
PROVIDERS: ADMIT Internal Medicine; ATTEND Internal Medicine
DX: J10.08 Influenza due to other identified influenza virus with other specified pneumonia (principal); J96.01 Acute respiratory failure with hypoxia; M62.82 Rhabdomyolysis; E87.2 Acidosis; J44.1 Chronic obstructive pulmonary disease with (acute) exacerbation; F17.210 Nicotine dependence, cigarettes, uncomplicated; E11.9 Type 2 diabetes mellitus without complications; E66.9 Obesity, unspecified; J18.9 Pneumonia, unspecified organism

== ENCOUNTER → 2022-01-13 | Outpatient (CLI) | payer OTHER ==
[~2022-01-13] MED LIST: CEFD300C41 PO; CEFD300CAP PO; METF500T13 PO; OSEL75CA PO; OSEL75CA2 PO; PRED10TA2 PO; TIOT18INH INH
== END ==
LOC: M CARPUL 10:37
PROVIDERS: ATTEND Pediatrics
DX: R01.1 Cardiac murmur, unspecified (principal)